=== PATIENT | female | born 1990 | race Caucasian/White ===

== ENCOUNTER 2017-10-09 00:36 | Inpatient (IN) | payer OTHER ==
--- NOTE | 2017-10-08 13:17 | HHI.HP ---
HPI Chief Complaint primary , macrosomia Travel History International Travel<30 Days: No Contact w/Intl Traveler<30Days: No Known Affected Area: No History of Present Illness HPI 27 yo G1 with EDC 10/15/17, pt of Dr. Pathak's, seen for consultation visit in office last week as Dr. Pathak will be out of town this week. Per review of records EFW has been >99%tile with recent EFW >9#. Pt was counseled with Dr. Pathak and desires primary for suspected macrosomia. On office exam no complaints, no contractions, just pelvic pressure, 05/16. Has significant family history of ASD and IUFD of her sibling (brother). All genetic testing has been negative, pt has been followed by MFM. Pt aware of risks of and consents to procedure. Weeks Gestation: 39 Para: 0 : 1 Last Menstrual Period: Mar 08, 2017 Miscarriage: 0 : 0 History Past Medical History Narrative Medical h/o diverticulitis, PCOS Obstetric History Obstetric History G1 = current Past Surgical History Narrative Surgical tonsillectomy 1998 mastoid tymphanoplasty 2007 Family History Narrative Family History patient's mother had IUFD (pt's brother) with congenital anomalies (Brogan Sybil Syndrome); father of baby's father has ASD/surgery Social History Alcohol Use: No Tobacco Use: No Substance Abuse: No Review of Systems General / Constitutional: Weight Gain, No: Fever, Chills, Other Eyes: No: Diploplia, Blurred Vision, Visual changes, Pain, Photophobia HENT: No: Headaches, Vertigo, Lightheadedness Cardiovascular: No: Irregular Rhythm, Chest Pain or Discomfort, Palpitations, Tachycardia, Syncope, Varicosities, Edema, Cyanosis Respiratory: No: Cough, Short of Breath, Other Gastrointestinal: No: Nausea, Vomiting, Diarrhea Genitourinary: Pelvic Pain (pressure), No: Decreased Urinary Output, Oliguria Musculoskeletal: No: Limited ROM, Weakness, Cramping, Edema, Pain Skin: No Rash, No Itching, No Dryness, No Lumps, No Change in Pigmentation, No Change in Nails, No Alopecia, No Lesions Neurologic: No: Weakness, Dizziness, Syncope, Focal Abnormalities, Coordination Problem, Headache, Slurred Speech, Seizures Psychiatric: No: Depression, Suicidal Ideations, Homicidal Ideation Endocrine: No: Heat Intolerance, Cold Intolerance, Polydipsia, Polyuria, Other Physical Exam Narrative GENERAL: Well-nourished, well-developed patient. SKIN: Warm and dry. HEAD: Normocephalic and atraumatic. EYES: No scleral icterus. No injection or drainage. ENT: No nasal drainage noted. Mucous membranes pink. Airway patent. NECK: Supple, trachea midline. No JVD. CARDIOVASCULAR: Regular rate and rhythm without murmurs, gallops, or rubs. RESPIRATORY: Breath sounds equal bilaterally. No accessory muscle use. BREASTS: deferred. ABDOMEN/GI: Abdomen soft, non-tender, bowel sounds present, no rebound, no guarding Gravid to [39] weeks size Fundal Height: [42] GENITOURINARY: deferred FHT's: 12/12 BPP in office EXTREMITIES: No cyanosis or edema. BACK: Nontender without obvious deformity. No CVA tenderness. NEUROLOGICAL: Awake and alert. Motor and sensory grossly within normal limits. Five out of 5 muscle strength in all muscle groups. Normal speech. Caprini VTE Risk Assessment Caprini VTE Risk Assessment: No/Low Risk (score <= 1) VTE Pharm Contraindication: High risk for bleeding Caprini Risk Assessment Model Point Value = 1 Point Value = 2 Point Value = 3 Point Value = 5 Age 41-60 Minor surgery BMI > 25 kg/m2 Swollen legs Varicose veins or History of unexplained or recurrent spontaneous Oral contraceptives or hormone replacement Sepsis (< 1 month) Serious lung disease, including pneumonia (< 1 month) Abnormal pulmonary function Acute myocardial infarction Congestive heart failure (< 1 month) History of inflammatory bowel disease Medical patient at bed rest Age 61-74 Arthroscopic surgery Major open surgery (> 45 min) Laparoscopic surgery (> 45 min) Malignancy Confined to bed (> 72 hours) Immobilizing plaster cast Central venous access Age >= 75 History of VTE Family history of VTE Factor V Leiden Prothrombin [id number] Lupus anticoagulant Anticardiolipin antibodies Elevated serum homocysteine Heparin-induced thrombocytopenia Other congenital or acquired thrombophilia Stroke (< 1 month) Elective arthroplasty Hip, pelvis, or leg fracture Acute spinal cord injury (< 1 month) Prophylaxis Regimen Total Risk Factor Score Risk Level Prophylaxis Regimen 0-1 Low Early ambulation 2 Moderate Order ONE of the following: *Sequential Compression Device (SCD) *Heparin 5000 units SQ BID 3-4 Higher Order ONE of the following medications: *Heparin 5000 units SQ TID *Enoxaparin/Lovenox 40 mg SQ daily (WT < 150 kg, CrCl > 30 mL/min) *Enoxaparin/Lovenox 30 mg SQ daily (WT < 150 kg, CrCl > 10-29 mL/min) *Enoxaparin/Lovenox 30 mg SQ BID (WT < 150 kg, CrCl > 30 mL/min) AND/OR *Sequential Compression Device (SCD) 5 or more Highest Order ONE of the following medications: *Heparin 5000 units SQ TID (Preferred with Epidurals) *Enoxaparin/Lovenox 40 mg SQ daily (WT < 150 kg, CrCl > 30 mL/min) *Enoxaparin/Lovenox 30 mg SQ daily (WT < 150 kg, CrCl > 10-29 mL/min) *Enoxaparin/Lovenox 30 mg SQ BID (WT < 150 kg, CrCl > 30 mL/min) AND *Sequential Compression Device (SCD) Data Data Vital Signs Reviewed: Yes Assessment/Plan Problem List: (1) Large for gestational age fetus affecting management of mother ICD Codes: O36.60X0 - Maternal care for excessive growth, unspecified trimester, not applicable or unspecified Qualifiers: Qualified Codes: O36.63X0 - Maternal care for excessive growth, third trimester, not applicable or unspecified Assessment and Plan 27 yo G1 with EDC 10/15/17 admit for scheduled for suspected macrosomia at term 1) primary CD: r/b/a d/w pt, AQA, consents signed, declines trial of labor 2) family hx of ASD on paternal side and IUFD on maternal side - all genetic testing negative during , pt seeing MFM, reassuring testing weekly since 32 wks 3) status: male "León" EFW >9# Discharge Planning routine 2-3d PP Josselin Ferrer MD Oct 08, 2017 13:17
[~2017-10-09] VITALS: Ht 154.9 cm; Wt 103.0 kg
[2017-10-09 01:32] LABS: AUTOMATED NEUTROPHIL # 10.9 TH/MM3 (1.8-7.7); BASOPHIL % 0.2 % (0.0-2.0); EOSINOPHIL # 0.3 TH/MM3 (0-0.4); EOSINOPHIL % 1.9 % (0.0-4.0); HEMATOCRIT 32.5 % (35.0-46.0); HEMOGLOBIN 10.6 GM/DL (11.6-15.3); LYMPH % 14.7 % (9.0-44.0); LYMPHOCYTE # 2.1 TH/MM3 (1.0-4.8); MEAN CELL VOLUME 82.1 FL (80.0-100.0); MEAN CORPUSCULAR HEMOGLOBIN 26.8 PG (27.0-34.0); MEAN CORPUSCULAR HGB CONC 32.6 % (32.0-36.0); MEAN PLATELET VOLUME 8.3 FL (7.0-11.0); MONO % 7.2 % (0.0-8.0); PLATELET COUNT 225 TH/MM3 (150-450); RED BLOOD COUNT 3.95 MIL/MM3 (4.00-5.30); RED CELL DISTRIBUTION WIDTH 14.7 % (11.6-17.2); WHITE BLOOD COUNT 14.4 TH/MM3 (4.0-11.0)
[2017-10-09 01:37] LABS: BACTERIA, URINE RARE /hpf; BILIRUBIN, URINE NEG (NEG); BLOOD, URINE MOD (NEG); GLUCOSE,URINE NEG (NEG); HYALINE CAST, URINE 9 /lpf (RARE); KETONE, URINE TRACE mg/dL (NEG); MUCUS URINE FEW /lpf (OCC); NITRITE,URINE NEG (NEG); PH, URINE 6.5 (5.0-8.5); RENAL EPITHELIAL CELLS 2 /hpf; SQUAMOUS EPITHELIAL CELL URINE 27 /hpf (0-5); URINE COLOR YELLOW (YELLW/STRAW); URINE LEUKOCYTE ESTERASE NEG (NEG)
[2017-10-09] MEDS ORDERED: ACETAMINOPHEN 1000 MG/100 ML 100 ML IV ONE ×2 (01:40→03:00)
[2017-10-09] MEDS ORDERED: MORPHINE SULFATE PF 5 MG/10 ML VIAL ONE (01:40)
[2017-10-09] MEDS ORDERED: LACTATED RINGER'S 1000 ML IV SCH (01:45)
[2017-10-09] MEDS ORDERED: CITRIC ACID-SODIUM CITRATE LIQ 30 ML UDC PO SCH (01:45)
[2017-10-09] MEDS ORDERED: LACTATED RINGER'S 1000 ML IV ONE (01:45)
[2017-10-09] MEDS ORDERED: EPIDURAL-NO SYSTEMIC NARCOTICS PRN (01:55)
[2017-10-09] MEDS ORDERED: EPIDURAL-DO NOT ADMINISTER ANTICOAGULANTS PRN (01:55)
[2017-10-09] MEDS ORDERED: EPIDURAL-DIPHENHYDRAMINE HCL 50 MG/ML VIAL IV PUSH PRN (01:55)
[2017-10-09] MEDS ORDERED: EPIDURAL-DIPHENHYDRAMINE HCL 50 MG CAP PO PRN (01:55)
[2017-10-09] MEDS ORDERED: EPIDURAL-NALOXONE HCL 0.4 MG/ML AMP IV PUSH PRN (01:55)
--- NOTE | 2017-10-09 02:51 | PD.OB.DELI ---
Procedure Note Section Procedure Pre Op Diagnosis: (1) Leakage of amniotic fluid (2) Large for gestational age fetus affecting management of mother Post Op Diagnosis: (1) S/P primary low transverse (2) Leakage of amniotic fluid (3) Large for gestational age fetus affecting management of mother Performed by Josselin Ferrer Procedure: Primary Low Transverse Sec Indication for delivery: Other (EFW >99%tile) Previous condition: None Informed consent obtained: For anesthesia, For procedure Confirmed correct: Patient, Procedure, Site, Time-out taken Anesthesia: Spinal Medication prior to procedure: As documented in eMAR Monitoring during procedure: Blood pressure monitoring, waste water plant operator, Pulse oximetry Urinary catheter: Inserted using sterile technique, To dependent drainage, ml urine output (200) Sterile preparation: Duraprep, In usual fashion, With drapes to expose affected area Position: Supine with wedge to right side Operative Features Skin Incision: Pfannenstiel Uterine Incision: Low transverse w/knife / scissors Membranes Ruptured: Previously, Amount of liquid (moderate), Appearance of fluid (clear) Presentation: Vertex Delivery date: Oct 09, 2017 Delivery time: 21:50 Delivery of : Uneventful : Male One Minute : 8 Five Minute : 9 Weight: 10#9oz Status of : Viable, Cord blood, Nursery present Placenta delivered: Intact Medications: Antibiotics (Ancef 2 g IV preop) Estimated blood loss: 500 mL Procedure tolerated: Well Maternal Condition: Stable Condition: Stable Procedure in detail see dictated op note for full details Josselin Ferrer MD Oct 09, 2017 02:51
[2017-10-09] MEDS ORDERED: oxyCODONE/ACETAMINOPHEN 5 MG/325 MG TAB PO PRN (03:00)
[2017-10-09] MEDS ORDERED: ZOLPIDEM TARTRATE 5 MG TAB PO PRN (03:00)
[2017-10-09] MEDS ORDERED: DOCUSATE SODIUM 50 MG/SENNA 8.6 MG TAB PO PRN (03:00)
[2017-10-09] MEDS: SODIUM CHLORIDE 0.9% FLUSH 10 ML FLUSH IV FLUSH SCH (03:00)
[2017-10-09] MEDS ORDERED: SODIUM CHLORIDE 0.9% FLUSH 10 ML FLUSH IV FLUSH PRN (03:00)
[2017-10-09] MEDS ORDERED: SIMETHICONE 80 MG CHEWABLE TAB PO PRN (03:00)
[2017-10-09] MEDS ORDERED: ACETAMINOPHEN 325 MG TAB PO PRN (03:00)
[2017-10-09] MEDS ORDERED: KETOROLAC TROMETHAMINE 60 MG/2 ML (IM) VIAL IM PRN (03:00)
[2017-10-09] MEDS ORDERED: OXYTOCIN 30 UNITS-500ML PREMIX 500 ML IV ONE (03:00)
[2017-10-09] MEDS ORDERED: OXYTOCIN 30 UNITS-500ML PREMIX 500 ML ONE (04:05)
--- NOTE | 2017-10-09 06:56 | MP ---
cc: Jsoselin Ferrer MD DATE OF OPERATION: 10/09/2017 PREOPERATIVE DIAGNOSES: 1. Og intrauterine at 39 weeks and 1 day. 2. Spontaneous rupture of amniotic fluid. 3. Large for gestational age infant with estimated weight over 99th percentile. POSTOPERATIVE DIAGNOSES: 1. Og intrauterine at 39 weeks and 1 day. 2. Spontaneous rupture of amniotic fluid. 3. Large for gestational age with estimated weight over 99th percentile. 4. Postoperative day number 0, status post primary low transverse delivery. INDICATION FOR PROCEDURE: Milvia León is a 27-year-old 1, now para 1-0-0-1, who was seen and evaluated in the office with measuring size greater than dates at her visits. She had an ultrasound at around 36 weeks, which showed estimated weight of 9 pounds and 7 ounces. This is greater than 99th percentile. Discussed with the patient the options and she desired a primary for suspected large for gestational age. She was scheduled for the morning of 10/09/2017 but overnight at approximately around 1:00 a.m., the patient came in with complaints of leakage of clear fluid. She was ruled in for spontaneous rupture of membranes. She was lisa approximately every 2 minutes, was 4 cm dilated, but very high station. It was discussed with the patient options including trial of labor. She declined and desired . As such, she was taken for surgery. PROCEDURE PERFORMED: Primary low transverse delivery. SURGEON: Josselin Ferrer MD TYPE OF ANESTHESIA: Spinal. ESTIMATED BLOOD LOSS: 500 mL. URINE OUTPUT: 200 mL of clear urine draining in the Joe bag at the end of the procedure. IV FLUID REPLACEMENT: 1900 mL. COMPLICATIONS: None. COUNTS: Sponge, lap, instrument and needle correct x 2 at the conclusion of the procedure. INTRAOPERATIVE FINDINGS: Include a vigorous viable male infant weighing 10 pounds 9 ounces, clear amniotic fluid, Apgars of 8 and 9. The bilateral adnexa were within normal limits as was the uterus. SPECIMEN: None. PROCEDURE IN DETAIL: After reviewing the informed consent, the patient was taken to the operating suite, where a timeout was performed to identify the patient, planned procedure, and any known allergies to drugs or drug products. The patient was then placed sitting up on the exam table and spinal anesthesia was administered without difficulty and found to be adequate. The patient was then laid in dorsal supine position with a bump under her right side and abdomen and perineum were prepped and draped in normal sterile fashion. Joe catheter was placed using sterile technique. Attention was turned abdominally, where a Pfannenstiel type skin incision was made with a scalpel, carried down to the underlying layer of fascia with the Bovie. The fascia was incised in the midline. Incision was extended laterally with sharp dissection using Anand scissors. Superior aspect of the fascial incision was elevated, and rectus muscles were dissected off sharply with Anand scissors. Rishi was then moved to the inferior edge of the fascial incision and rectus muscles were again dissected off sharply with Anand scissors. The rectus muscles were in the midline. Peritoneum was identified and entered bluntly with surgeon's index finger. Incision was extended to allow good visualization of intra-abdominal contents. Bladder blade was placed. Bladder flap was not made. A low transverse uterine incision was made with scalpel. This was extended bluntly. Infant's head was grasped, elevated out through the incision. With fundal pressure, the rest of the 's body readily delivered. was immediately crying and vigorous upon delivery. Delayed cord clamping of 45 seconds was performed. Cord was then clamped and cut. Infant was handed off to the awaiting nursery staff. The placenta was delivered spontaneously with gentle fundal massage and cord traction. The uterus was exteriorized, cleared of all clots and debris with sterile moist lap sponges. Hysterotomy was repaired in a double-layer, first in a running locked layer, then in an imbricating layer with #1 chromic. The posterior cul-de-sac was then irrigated. The uterus was returned to the abdomen. Additional irrigation with suction was performed. The peritoneum was closed in a running layer with 2-0 chromic. The fascia was closed in a running layer with #1 Vicryl. Subcutaneous tissue was irrigated and closed in a series of interrupted sutures using 2-0 chromic. Skin was cleaned and dried and closed in a subcuticular fashion with 3-0 Monocryl. Steri-Strips were then placed as well as a standard dressing. The procedure concluded at this point. The patient tolerated the procedure well, without complications. DISPOSITION: The patient is resting in the Postanesthesia care unit with her who is nursery status. Estimated length of stay is two to three postoperative days. MD BROOKLYN Camacho/SHRUTHI , 02:57 AM , 06:55 AM FÉLIX
[2017-10-09] MEDS ORDERED: LACTATED RINGER'S 1000 ML INJ 1,000 ML IV SCH (07:48)
[2017-10-09] MEDS ORDERED: OXYTOCIN 30 UNITS-500ML PREMIX 500 ML IV PRN (08:00)
--- NOTE | 2017-10-09 08:44 | HHI.OB ---
Subjective Post Operative Day: 0 Remarks resting comfortable no questions baby for circ Objective Result Diagram: 10/09/17 0050 Objective Remarks GENERAL: Well-nourished, well-developed patient. CARDIOVASCULAR: Regular rate and rhythm without murmurs, gallops, or rubs. RESPIRATORY: Breath sounds equal bilaterally. No accessory muscle use. ABDOMEN/GI: Abdomen soft, non-tender, bowel sounds present. bandage: Clean, dry and intact. Fundus: Firm, non-tender at umbilicus. GENITOURINARY: Light to moderate bleeding. EXTREMITIES: No cyanosis or edema, non-tender, without signs of DVT. Medications and IVs Current Medications Medications (Trade) Dose Ordered Sig/Dayanara Route Start Time Stop Time Status Last Admin Lactated Ringer's 1,000 ml @ 100 mls/hr Q10H IV 10/09/17 07:48 10/10/17 03:47 10/09/17 06:00 Oxytocin 500 ml @ 100 mls/hr UNSCH X1 PRN IV 10/09/17 08:00 10/10/17 07:59 (NS Flush) 2 ml BID IV FLUSH 10/09/17 03:00 (NS Flush) 2 ml UNSCH PRN IV FLUSH 10/09/17 03:00 (Mylicon Chew) 80 mg QID PRN PO 10/09/17 03:00 (Tylenol) 650 mg Q6H PRN PO 10/09/17 03:00 (Motrin) 600 mg Q6H PRN PO 10/09/17 03:00 (Toradol Inj) 30 mg Q6H PRN IM 10/09/17 03:00 10/10/17 02:59 (Percocet 5-325 Mg) 1 tab Q4H PRN PO 10/09/17 03:00 (Percocet 5-325 Mg) 2 tab Q4H PRN PO 10/09/17 03:00 (Pallavi-Colace) 2 tab Q12H PRN PO 10/09/17 03:00 (Ambien) 5 mg HS PRN PO 10/09/17 03:00 (M-M-R Ii Inj) 0.5 ml ONCE ONCE SQ 10/10/17 16:00 10/10/17 16:01 (Boostrix Inj) 0.5 ml ONCE ONCE IM 10/10/17 16:00 10/10/17 16:01 (Zofran Odt) 4 mg Q6H PRN PO 10/09/17 03:15 ([facility] [place] [facility]) NO SYSTEMIC NARCOTICS TO BE GIVEN FO... UNSCH PRN .XX 10/09/17 01:55 10/10/17 01:54 (Narcan Inj) 0.4 mg UNSCH PRN IV PUSH 10/09/17 01:55 10/10/17 01:54 (Benadryl Inj) 25 mg Q6H PRN IV PUSH 10/09/17 01:55 10/10/17 01:54 (Benadryl) 50 mg Q6H PRN PO 10/09/17 01:55 10/10/17 01:54 ([facility] [place] [facility]) ALL NURSING DEPARTMENTS UNSCH PRN .XX 10/09/17 01:55 10/10/17 01:54 Acetaminophen 100 ml @ 400 mls/hr Q8H IV 10/09/17 02:00 10/09/17 18:14 Assessment/Plan Problem List: (1) Large for gestational age fetus affecting management of mother ICD Codes: O36.60X0 - Maternal care for excessive growth, unspecified trimester, not applicable or unspecified Qualifiers: Qualified Codes: O36.63X0 - Maternal care for excessive growth, third trimester, not applicable or unspecified Assessment and Plan 27 yo G1 with EDC 10/15/17 admit for scheduled for suspected macrosomia at term 1) primary CD: r/b/a d/w pt, AQA, consents signed, declines trial of labor 2) family hx of ASD on paternal side and IUFD on maternal side - all genetic testing negative during , pt seeing MFM, reassuring testing weekly since 32 wks 3) status: male "León" EFW >9# Discharge Planning routine 2-3d PP / POD 1 doign well Hct OK anticipate home POD 2-3 Xochilt Delarosa MD Oct 09, 2017 08:44
[2017-10-09] MEDS: ACETAMINOPHEN 1000 MG/100 ML 100 ML IV SCH ×2 (10:30→17:50)
[2017-10-09] MEDS ORDERED: DEXAMETHASONE SOD PHOS 4 MG/ML VIAL IV ONE (12:00)
[2017-10-09] MEDS ORDERED: LACTATED RINGER'S 1000 ML INJ 1,000 ML IV ONE (12:00)
[2017-10-09] MEDS ORDERED: PHENYLEPH/NS 1000 MCG/10 ML SYR IV ONE (12:00)
[2017-10-09] MEDS ORDERED: ceFAZolin INJ 1,000 MG VIAL IV ONE (12:00)
[2017-10-09] MEDS ORDERED: ONDANSETRON HCL 4 MG/2 ML VIAL IV ONE (12:00)
[2017-10-09] MEDS ORDERED: SODIUM CHLORIDE 0.9% 20 ML VIAL IV ONE (12:00)
[2017-10-09] MEDS ORDERED: OXYTOCIN 10 UNIT/ML AMP IV ONE (12:00)
[2017-10-09] MEDS: IBUPROFEN 600 MG TAB PO PRN (17:41)
[2017-10-10] MEDS: IBUPROFEN 600 MG TAB PO PRN ×4 (01:25→23:59)
[2017-10-10 05:58] LABS: BASOPHIL % 0.3 % (0.0-2.0); EOSINOPHIL # 0.2 TH/MM3 (0-0.4); EOSINOPHIL % 1.7 % (0.0-4.0); HEMOGLOBIN 9.2 GM/DL (11.6-15.3); LYMPH % 16.5 % (9.0-44.0); LYMPHOCYTE # 1.9 TH/MM3 (1.0-4.8); MEAN CORPUSCULAR HEMOGLOBIN 27.7 PG (27.0-34.0); MEAN PLATELET VOLUME 8.5 FL (7.0-11.0); MONO % 10.7 % (0.0-8.0); MONOCYTE # 1.2 TH/MM3 (0-0.9); NEUT % 70.8 % (16.0-70.0); PLATELET COUNT 149 TH/MM3 (150-450); RED BLOOD COUNT 3.34 MIL/MM3 (4.00-5.30); RED CELL DISTRIBUTION WIDTH 15.1 % (11.6-17.2); WHITE BLOOD COUNT 11.3 TH/MM3 (4.0-11.0)
--- NOTE | 2017-10-10 11:43 | HHI.OB ---
Subjective Post Operative Day: 2 Remarks POD#2, pain is 6-7/10, has not taken narcotic for pain only NSAID Objective Result Diagram: 10/10/17 0521 Objective Remarks GENERAL: Well-nourished, well-developed patient. CARDIOVASCULAR: Regular rate and rhythm without murmurs, gallops, or rubs. RESPIRATORY: Breath sounds equal bilaterally. No accessory muscle use. ABDOMEN/GI: Abdomen soft, non-tender, bowel sounds present. bandage: Clean, dry and intact. Fundus: Firm, non-tender at umbilicus. GENITOURINARY: Light to moderate bleeding. EXTREMITIES: No cyanosis or edema, non-tender, without signs of DVT. Medications and IVs Current Medications Medications (Trade) Dose Ordered Sig/Dayanara Route Start Time Stop Time Status Last Admin (NS Flush) 2 ml BID IV FLUSH 10/09/17 03:00 (NS Flush) 2 ml UNSCH PRN IV FLUSH 10/09/17 03:00 10/09/17 17:40 (Mylicon Chew) 80 mg QID PRN PO 10/09/17 03:00 (Tylenol) 650 mg Q6H PRN PO 10/09/17 03:00 (Motrin) 600 mg Q6H PRN PO 10/09/17 03:00 10/10/17 09:00 (Percocet 5-325 Mg) 1 tab Q4H PRN PO 10/09/17 03:00 (Percocet 5-325 Mg) 2 tab Q4H PRN PO 10/09/17 03:00 (Pallavi-Colace) 2 tab Q12H PRN PO 10/09/17 03:00 (Ambien) 5 mg HS PRN PO 10/09/17 03:00 (M-M-R Ii Inj) 0.5 ml ONCE ONCE SQ 10/10/17 16:00 10/10/17 16:01 (Boostrix Inj) 0.5 ml ONCE ONCE IM 10/10/17 16:00 10/10/17 16:01 (Zofran Odt) 4 mg Q6H PRN PO 10/09/17 03:15 Assessment/Plan Problem List: (1) Large for gestational age fetus affecting management of mother ICD Codes: O36.60X0 - Maternal care for excessive growth, unspecified trimester, not applicable or unspecified Qualifiers: Qualified Codes: O36.63X0 - Maternal care for excessive growth, third trimester, not applicable or unspecified Assessment and Plan 27 yo G1 with EDC 10/15/17 admit for scheduled for suspected macrosomia at term 1) primary CD: r/b/a d/w pt, AQA, consents signed, declines trial of labor 2) family hx of ASD on paternal side and IUFD on maternal side - all genetic testing negative during , pt seeing MFM, reassuring testing weekly since 32 wks 3) status: male "León" EFW >9# 10/10/2017 ; POD#2, stable, discussed use of percocet for pain management. Discharge Planning Plan discharge POD#3 Attending Attestation seen by Yaw Barboza MD Oct 10, 2017 11:43
--- NOTE | 2017-10-10 11:44 | HHI.DS ---
Admission Date Oct 09, 2017 at 00:36 Admitting Diagnosis Diagnosis: Delivery Date: Oct 09, 2017 : Primary Infant: Male Brief History 27 yo G1 with EDC 10/15/17, pt of Dr. Pathak's, seen for consultation visit in office last week as Dr. Pathak will be out of town this week. Per review of records EFW has been >99%tile with recent EFW >9#. Pt was counseled with Dr. Pathak and desires primary for suspected macrosomia. On office exam no complaints, no contractions, just pelvic pressure, /10. Has significant family history of ASD and IUFD of her sibling (brother). All genetic testing has been negative, pt has been followed by MFM. Pt aware of risks of and consents to procedure. Pt Condition on Discharge: Good Discharge Disposition: Discharge Home Discharge Instructions Diet Instructions: As Tolerated, No Restrictions Activities You Can Perform: Shower Only-No Bath Activities to Avoid: Prolonged Standing, Strenuous Activity, Driving, Sexual Activity Yaw Herrera MD Oct 10, 2017 11:44
[2017-10-10] MEDS: ONDANSETRON ODT 4 MG TAB PO PRN ×2 (12:51→19:15)
[2017-10-10] MEDS: oxyCODONE/ACETAMINOPHEN 5 MG/325 MG TAB PO PRN ×2 (12:52→19:15)
[2017-10-10] MEDS ORDERED: MEASLES, MUMPS, RUBELLA VACCINE 0.5 ML VIAL SQ ONE (16:00)
[2017-10-10] MEDS ORDERED: DIPHTH/TETANUS/ACEL PERTUSSIS (BOOSTER) 0.5 ML VIAL/PFS IM ONE (16:00)
[2017-10-10 20:07] VITALS: BP 120/85; PULSE 98; RESP 19; TEMP 97.6
[2017-10-10] MEDS: SODIUM CHLORIDE 0.9% FLUSH 10 ML FLUSH IV FLUSH SCH (21:00)
[2017-10-11] MEDS: ONDANSETRON ODT 4 MG TAB PO PRN ×3 (06:26→12:37)
[2017-10-11] MEDS: oxyCODONE/ACETAMINOPHEN 5 MG/325 MG TAB PO PRN ×3 (06:26→12:38)
[2017-10-11] MEDS: IBUPROFEN 600 MG TAB PO PRN ×2 (06:26→12:38)
[2017-10-11] MEDS ORDERED: PERC5TAB12 PO (07:13)
[2017-10-11] MEDS ORDERED: IBUP-232 PO (07:13)
--- NOTE | 2017-10-11 07:49 | HHI.OB ---
Subjective Post Operative Day: 2 Remarks Doing well, pain controlled, bleeding less than menses, breast-feeding, no complaints. Objective Vitals/I&O Vital Signs Date Time Temp Pulse Resp B/P (MAP) Pulse Ox O2 Delivery O2 Flow Rate FiO2 10/10/17 20:07 97.6 98 19 120/85 (97) Result Diagram: 10/10/17 0521 Objective Remarks GENERAL: Well-nourished, well-developed patient. CARDIOVASCULAR: Regular rate and rhythm without murmurs, gallops, or rubs. RESPIRATORY: Breath sounds equal bilaterally. No accessory muscle use. ABDOMEN/GI: Abdomen soft, non-tender, bowel sounds present. Incision, clean, dry and intact, some bloodstained in the midline, no active bleeding. Fundus: Firm, non-tender at umbilicus. GENITOURINARY: Light to moderate bleeding. EXTREMITIES: No cyanosis or edema, non-tender, without signs of DVT. Medications and IVs Current Medications Medications (Trade) Dose Ordered Sig/Dayanara Route Start Time Stop Time Status Last Admin (NS Flush) 2 ml BID IV FLUSH 10/09/17 03:00 (NS Flush) 2 ml UNSCH PRN IV FLUSH 10/09/17 03:00 10/09/17 17:40 (Mylicon Chew) 80 mg QID PRN PO 10/09/17 03:00 (Tylenol) 650 mg Q6H PRN PO 10/09/17 03:00 (Motrin) 600 mg Q6H PRN PO 10/09/17 03:00 10/11/17 06:26 (Percocet 5-325 Mg) 1 tab Q4H PRN PO 10/09/17 03:00 10/11/17 06:26 (Percocet 5-325 Mg) 2 tab Q4H PRN PO 10/09/17 03:00 (Pallavi-Colace) 2 tab Q12H PRN PO 10/09/17 03:00 (Ambien) 5 mg HS PRN PO 10/09/17 03:00 (Zofran Odt) 4 mg Q6H PRN PO 10/09/17 03:15 10/11/17 06:26 Assessment/Plan Problem List: (1) Large for gestational age fetus affecting management of mother ICD Codes: O36.60X0 - Maternal care for excessive growth, unspecified trimester, not applicable or unspecified Qualifiers: Qualified Codes: O36.63X0 - Maternal care for excessive growth, third trimester, not applicable or unspecified Assessment and Plan 27-year-old status post primary low transverse at 39 weeks for macrosomia 1. Postoperative day #2: Afebrile, vital signs stable, discharge home today, discussed postoperative and precautions, expectations and follow- up.. Looked pt up on PDMNP reviewed report -Male , circumcision to be done today 2. Postoperative anemia: Patient asymptomatic. Wade Tamez MD Oct 11, 2017 07:49
== END 2017-10-11 13:00 | disposition home or self-care (01) | DRG 766 ==
LOC: H2EB 00:36 → H1EA 04:42
PROVIDERS: ADMIT Obstetrics & Gynecology; ATTEND Obstetrics & Gynecology
PROC: 10D00Z1 Extraction of Products of Conception, Low, Open Approach (ICD-10-PCS; principal; 2017-10-09)
DX: O36.63X0 Maternal care for excessive fetal growth, third trimester, not applicable or unspecified (principal); Z82.79 Family history of other congenital malformations, deformations and chromosomal abnormalities; Z37.0 Single live birth; Z3A.39 39 weeks gestation of pregnancy
CPT/HCPCS: 59025; 80307; 81001; 85025; 86850; 86900; 86901; J0131; J0690; J1100; J2274; J2370; J2405; J2590; J7120